=== PATIENT | male | born 1970 | race African-American/Black ===

== ENCOUNTER 2017-07-15 11:53 | Emergency (ER) | payer SELFPAY ==
[~2017-07-15] VITALS: Ht 167.6 cm; Wt 70.3 kg
[~2017-07-15 11:53] MED LIST: AUGMENTIN 875 M1 TAB PO
[2017-07-15 14:11] LABS: ABSOLUTE BASOPHIL COUNT 0.1 /CUMM (0.0-0.2); ABSOLUTE EOSINOPHIL COUNT 0.1 /CUMM (0.0-0.7); ABSOLUTE GRANULOCYTE CT 3.9 /CUMM (1.4-6.5); ABSOLUTE LYMPH COUNT 2.1 /CUMM (1.2-3.4); ABSOLUTE MONOCYTE COUNT 0.4 /CUMM (0.10-0.60); EOSINOPHIL % 0.8 % (0-5); HEMATOCRIT 37.1 % (42-52); MEAN CORPUSCULAR HGB 31.6 PG (27.0-31.0); MEAN CORPUSCULAR HGB CONC 34.3 G/DL (33.0-37.0); MEAN CORPUSCULAR VOLUME 92.1 FL (80.0-94.0); MEAN PLATELET VOLUME 7.9 FL (7.4-10.4); PLATELET COUNT 301 /CUMM (130-400); RBC DISTRIBUTION WIDTH 13.6 % (11.5-14.5); RED BLOOD CELL CT 4.03 /CUMM (4.70-6.10); WHITE BLOOD CELL COUNT 6.6 /CUMM (4.8-10.8)
--- NOTE | 2017-07-15 17:51 | ED GENERAL ADULT ---
History of Present Illness General Chief Complaint: General Adult Stated Complaint: LIGHTHEADED,"HEART RACING", SLIGHT CHEST PRESSURE Source: patient, Exam Limitations: no limitations Vital Signs & Intake/Output Vital Signs & Intake/Output Vital Signs Date Time Temp Pulse Resp B/P B/P Pulse O2 O2 Flow FiO2 Mean Ox Delivery Rate 07/16 1999 96.9 68 18 138/67 97 Room Air 07/15 1855 Room Air 07/15 1751 98.1 65 18 149/78 98 Room Air 07/15 1215 96.5 71 18 160/84 98 Room Air Allergies Coded Allergies: NO KNOWN ALLERGIES (06/30/14) Reconcile Medications Alprazolam (Xanax) 0.5 MG TABLET 1 TAB PO BIDP PRN ANXIETY AMOXICILLIN/POTASSIUM CLAV (Augmentin 875-125 Tablet) 875 MG/125 MG TAB 1 TAB PO BID sinusitis Triage Note: PT TO ER C/C 1 HR EPISODE OF RAPID HR AND LIGHTHEADEDNESS WHICH STARTED WHILE THE PATIENT WAS PAINTING. 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 STATES SYMPTOMS ARE IMPROVING. DENIES C/P OR SOB. DENIES RECENT ILLNESS OR FEVERS Triage Nurses Notes Reviewed? yes Onset: Gradual Duration: hour(s):, better, continues in ED Injury Environment: INDOORS, WELL VENTILATED Severity: moderate HPI: Patient presents for evaluation of an episode of lightheadedness with racing heart palpitations and slight chest pressure while painting indoors. Patient is asymptomatic currently. Past History Travel History Traveled to [place] past 21 day No Medical History Any Pertinent Medical History? 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 No Review of Systems Review of Systems Constitutional: Reports: no symptoms. EENTM: Reports: no symptoms. Respiratory: Reports: no symptoms. Cardiovascular: Reports: see HPI. GI: Reports: no symptoms. Genitourinary: Reports: no symptoms. Musculoskeletal: Reports: no symptoms. Skin: Reports: no symptoms. Neurological/Psychological: Reports: no symptoms. Hematologic/Endocrine: Reports: no symptoms. Immunologic/Allergic: Reports: no symptoms. All Other Systems: Reviewed and Negative Physical Exam Physical Exam General Appearance: SEE BELOW Comments: Gen.: Well-nourished, well-developed, no acute respiratory distress. Head: Normocephalic, atraumatic. Eyes: Normal inspection bilaterally Ears: Normal inspection bilaterally Nose: Normal inspection Throat/mouth : Moist mucosa Neck: Supple, full range of motion, no goiter Heart: Regular rate and rhythm, soft systolic murmur throughout the precordium Lungs: Clear to auscultation bilaterally with normal air entry Chest: Nontender Back: Normal range of motion Abdomen: Soft, nontender, nondistended, normal bowel sounds Extremities: Normal range of motion grossly, equal radial pulses, no cyanosis clubbing or edema Neurologic: Cranial nerves grossly intact, speech is clear Skin: warm and dry Psychiatric: Calm, cooperative, no apparent delusions or hallucinations Core Measures ACS in differential dx? No CVA/TIA Diagnosis: No Sepsis Present: No Sepsis Focused Exam Completed? No Progress Differential Diagnoses I considered the following diagnoses in my evaluation of the patient: Plan of Care: Orders Procedure Date/time Status TROPONIN LEVEL 07/15 1754 Complete EKG 07/15 1754 Active TSH REFLEX 07/15 1305 Complete TROPONIN LEVEL 07/15 1305 Complete MAGNESIUM 07/15 1305 Complete COMPREHENSIVE METABOLIC PANEL 07/15 1305 Complete CBC WITHOUT DIFFERENTIAL 07/15 1305 Complete EKG 07/15 1154 Active Laboratory Tests 07/15/17 1815: Troponin I < 0.01 07/15/17 1357: Anion Gap 12, Estimated GFR > 60, BUN/Creatinine Ratio 18.8, Glucose 93, Calcium 9.8, Magnesium 1.9, Total Bilirubin 0.8, AST 79 H, ALT 78 H, Alkaline Phosphatase 72, Troponin I < 0.01, Total Protein 7.9, Albumin 4.6, Globulin 3.3, Albumin/Globulin Ratio 1.4, TSH &T3 &Free T4 Intrp 1.370, CBC w Diff NO MAN DIFF REQ, RBC 4.03 L, MCV 92.1, MCH 31.6 H, MCHC 34.3, RDW 13.6, MPV 7.9, Gran % 60.0, Lymphocytes % 32.3, Monocytes % 5.9, Eosinophils % 0.8, Basophils % 1.0, Absolute Granulocytes 3.9, Absolute Lymphocytes 2.1, Absolute Monocytes 0.4, Absolute Eosinophils 0.1, Absolute Basophils 0.1 Initial ED EKG: NSR, no ST T wave changes Prior EKG: unchanged Repeat EKG: unchanged Comments: 07/15/2017 7:39:50 PM I have updated Eber on test results. Although the etiology of his symptoms is unclear at this point I suspect anxiety. Departure Departure Disposition: HOME OR SELF CARE Condition: Stable Clinical Impression Primary Impression: Heart palpitations Referrals: Patient Has No Primary Care Dr (PCP/Family) Additional Instructions: Follow-up with the [place] primary care practice ( ) as soon as possible for general medical evaluation. Return if any concerns or sudden worsening. Please note that there might be incidental findings in your evaluation that are unrelated to the current emergency department visit. Please notify your primary care doctor about this emergency department visit in order to obtain and review all of the testing performed so that these incidental findings can be monitored as needed. If you had an x-ray performed, please understand that some fractures may not be seen on the initial set of x-rays. If your symptoms persist you might need a repeat set of x-rays to check for such a fracture. If you had a laceration evaluated, please understand that foreign bodies such as glass or wood may not be visible to the naked eye or on plain x-rays. If the wound becomes red, swollen, increasingly more painful or if there is any drainage from the wound, please have it reevaluated by a physician for the possibility of a retained foreign body. If you're unable to follow up as outlined in the discharge instructions please return to the emergency department. Thank you for choosing the [facility] Emergency [facility] for your care. It was a pleasure to serve you today. Nehemiah Schilling M.D. [facility] Departure Forms: Customer Survey General Discharge Information Prescriptions: Current Visit Scripts Alprazolam (Xanax) 1 TAB PO BIDP PRN ANXIETY #6 TAB Critical Care Note Critical Care Note Critical Care Time: non-applicable
[2017-07-15 20:00] VITALS: BP 138/67
[2017-07-15] MEDS ORDERED: XANAX0.5 M1 PO (20:26)
== END 2017-07-15 20:30 ==
LOC: ERH 11:53
PROVIDERS: Emergency Medicine
DX: R00.2 Palpitations (principal)
CPT/HCPCS: 93005; 93010